=== PATIENT | female | born 1945 | race Caucasian/White ===

== ENCOUNTER 2022-06-07 15:02 | Emergency (ER) | payer OTHER ==
[~2022-06-07] VITALS: Ht 157.5 cm; Wt 81.6 kg
[2022-06-07 15:22] VITALS: BP 168/78
[2022-06-07] MEDS ORDERED: ACET-66 PO (17:36)
== END 2022-06-07 18:03 | disposition home or self-care (01) ==
LOC: EDH 15:02
DX: S96.911A Strain of unspecified muscle and tendon at ankle and foot level, right foot, initial encounter (principal); V89.2XXA Person injured in unspecified motor-vehicle accident, traffic, initial encounter; Y93.19 Activity, other involving water and watercraft; Y99.8 Other external cause status; Y92.410 Unspecified street and highway as the place of occurrence of the external cause
CPT/HCPCS: 29515; 73610